=== PATIENT | female | born 1955 | race Hispanic/Latino ===

== ENCOUNTER → 2018-12-09 | Outpatient (CLI) | payer OTHER ==
--- NOTE | 2018-12-14 08:21 | Diagnostic Imaging Report ---
#[id number] - MGSCRBIL #BILATERAL DIGITAL SCREENING MAMMOGRAM WITH CAD: 12/09/2018 CLINICAL: Routine screening. No prior exams were available for comparison. The tissue of both breasts is heterogeneously dense. This may lower the sensitivity of mammography. Current study was also evaluated with a Computer Aided Detection (CAD) system. There is a benign intramammary node in the right breast. No significant masses, calcifications, or other findings are seen in either breast. IMPRESSION: BENIGN There is no mammographic evidence of malignancy. A 1 year screening mammogram is recommended. The patient will be notified by letter of the results. RUSTY VILLANUEVA M.D., mc/nena:12/11/2018 11:16:22 Data Collection Technician: Geno DURÁN)(Mary), [facility] letter sent: Normal Exam Mammogram BI-RADS: 2 Benign
== END ==
LOC: MAMMO 11:20
PROVIDERS: ATTEND Internal Medicine
DX: Z12.31 Encounter for screening mammogram for malignant neoplasm of breast (principal)
CPT/HCPCS: 77067

== ENCOUNTER → 2020-02-23 | Outpatient (CLI) | payer OTHER ==
--- NOTE | 2020-02-24 08:25 | Diagnostic Imaging Report ---
#[id number] - MGDXBIL #BILATERAL DIGITAL DIAGNOSTIC MAMMOGRAM WITH CAD: 02/23/2020 Comparison is made to exam dated: 12/09/2018 mammogram - [facility]. Current study contains 6 films. There are scattered fibroglandular elements in both breasts. Current study was also evaluated with a Computer Aided Detection (CAD) system. Benign appearing calcifications are noted bilaterally. There are benign vascular calcifications in both breasts. No significant masses, calcifications, or other findings are seen in either breast. IMPRESSION: BENIGN See the report for ultrasound performed the same day for additional details. There is no mammographic evidence of malignancy. A 1 year screening mammogram is recommended. The patient will be notified by letter of the results. HANSEL GARCIA M.D. ct/penrad:02/23/2020 14:43:20 Aircraft Navigator: Geno DURÁN)(Mary), [facility] letter sent: Normal Exam Mammogram BI-RADS: 2 Benign
--- NOTE | 2020-02-24 08:25 | Diagnostic Imaging Report ---
#[id number] - USBRECOMLT ULTRASOUND OF THE LEFT BREAST : 02/23/2020 Comparison is made to exams dated: 02/23/2020 mammogram and 12/09/2018 mammogram - [facility]. Color flow and real-time ultrasound were performed on the left breast. No abnormalities were seen sonographically in the left axilla. There are no solid or cystic masses identified. A 5 mm benign simple cyst is noted at 12 o'clock near the nipple. IMPRESSION: BENIGN There is no sonographic evidence of malignancy. A 1 year screening mammogram is recommended. HANSEL GARCIA M.D. ct/:02/23/2020 14:46:08 Mixer And Scaler: Ana Maria Roberts RDWA, [facility] letter sent: Normal Exam Ultrasound BI-RADS: 2 Benign
--- NOTE | 2020-02-24 08:26 | Diagnostic Imaging Report ---
#[id number] - USBRECOMRT ULTRASOUND OF THE RIGHT BREAST : 02/23/2020 Comparison is made to exam dated: 02/23/2020 mammogram - [facility]. Color flow and real-time ultrasound were performed on the right breast. No abnormalities were seen sonographically in the right axilla. There are no solid or cystic masses identified. IMPRESSION: BENIGN There is no sonographic evidence of malignancy. A 1 year screening mammogram is recommended. HANSEL GARCIA M.D. ct/penrad:02/23/2020 14:44:37 Marketing Assistant: Ana Maria Roberts [facility], [facility] letter sent: Normal Exam Ultrasound BI-RADS: 2 Benign
== END ==
LOC: MAMMO 10:13
PROVIDERS: ATTEND Internal Medicine
DX: N64.52 Nipple discharge (principal); N64.4 Mastodynia
CPT/HCPCS: 77066